=== PATIENT | female | born 1950 | race Caucasian/White ===

== ENCOUNTER → 2016-10-03 | Outpatient (CLI) | payer MEDICARE, OTHER | END | disposition home or self-care (01) | LOC: GMAB 11:14 | PROVIDERS: ATTEND Family Medicine | DX: I10 Essential (primary) hypertension (principal) ==

== ENCOUNTER → 2016-10-09 | Outpatient (CLI) | payer MEDICARE, OTHER ==
--- NOTE | 2016-10-09 13:40 | MAM ---
EXAM DESCRIPTION: MAMMO BREAST SCREENING BILATERAL CLINICAL HISTORY: 65 y/o F, Screening mammogram COMPARISON: 06 September 2015 TECHNIQUE: CC and MLO digital mammograms with computer aided detection. FINDINGS: There are scattered fibroglandular densities. There is no dominant mass nor any suspicious microcalcifications. Benign microcalcifications are present. IMPRESSION: BI-RADS 2: BENIGN FOLLOW-UP: Routine mammography screening. Electronically signed by: Tank Dunlap MD 10/09/2016 13:38
== END | disposition home or self-care (01) ==
LOC: MAMMO 09:34
PROVIDERS: ATTEND Family Medicine
DX: Z12.31 Encounter for screening mammogram for malignant neoplasm of breast (principal)

== ENCOUNTER → 2017-11-26 | Outpatient (CLI) | payer MEDICARE, OTHER | END | disposition home or self-care (01) | LOC: GMAB 11:24 | PROVIDERS: ATTEND Family Medicine | DX: I10 Essential (primary) hypertension (principal) ==

== ENCOUNTER → 2017-12-24 | Outpatient (CLI) | payer MEDICARE, OTHER ==
--- NOTE | 2017-12-26 09:11 | MAM ---
EXAM DESCRIPTION: 3D Screening BILATERAL : Digital Mammography. CLINICAL HISTORY: 67 years Female SCREENING . No complaints. No family history of breast cancer. Hysterectomy. Has taken HRT more than 5 years ago. COMPARISON: 2-D digital screening bilateral study 10/09/2016.. Report from prior examination also reviewed. TECHNIQUE: Bilateral CC and MLO projection full-field images, 3-D tomosynthesis digital mammographic technique. Also bilateral synthesized CC/ MLO full-field images. CAD not utilized. FINDINGS: The breast parenchymal density pattern is: Scattered areas of fibroglandular density. No skin thickening or nipple retraction bilateral solitary microcalcifications. No focal, stellate mass or density, focal asymmetry , and no suspicious microcalcifications bilaterally. Stable mammograms compared to prior study, taking into account differences in mammographic technique IMPRESSION: BI-RADS CATEGORY: 2 - BENIGN FINDINGS. FOLLOW UP: Routine digital bilateral screening, one year interval from December 2017. Written communication explaining the IMPRESSION and follow-up, will be mailed to the patient and referring health care provider. According to the [employer], yearly mammograms are recommended starting at age 40 and continuing as long as a woman is in good health. Any breast change noted on a breast self-exam should be reported promptly to the patient's healthcare provider. Breast MRI is recommended for women with an approximately 20-25% or greater lifetime risk of breast cancer, including women with a strong family history of breast or ovarian cancer and women who have been treated for Hodgkin's disease. A negative mammographic report should not delay tissue diagnosis in patients with significant clinical history or physical findings. Extremely dense breast tissue limits the sensitivity of digital mammography. Electronically signed by: Brody Stone MD 12/26/2017 9:09 AM CDT
== END ==
LOC: MAMMO 13:30
PROVIDERS: ATTEND Family Medicine
DX: Z12.31 Encounter for screening mammogram for malignant neoplasm of breast (principal)

== ENCOUNTER → 2018-12-04 | Outpatient (CLI) | payer MEDICARE, OTHER | LOC: GMAE 10:46 | PROVIDERS: ATTEND Family Medicine | DX: I10 Essential (primary) hypertension (principal); E87.6 Hypokalemia ==

== ENCOUNTER → 2018-12-11 | Outpatient (CLI) | payer MEDICARE, OTHER | LOC: GMAE 15:25 | PROVIDERS: ATTEND Family Medicine | DX: I11.9 Hypertensive heart disease without heart failure (principal) ==

== ENCOUNTER → 2019-03-10 | Outpatient (CLI) | payer MEDICARE, OTHER ==
--- NOTE | 2019-03-11 20:20 | MAM ---
EXAM DESCRIPTION: 3D Screening BILATERAL : Digital Mammography. CLINICAL HISTORY: 68 years Female ANNUAL SCREENING . No complaints. No personal or family history of breast cancer. Childbirth. Postmenopausal. HRT 5 or more years ago. Lifetime risk of developing breast cancer (Tyrer-Cuzick model)(%): 3.8. COMPARISON: Bilateral screening digital breast tomosynthesis 12/24/2017.. TECHNIQUE: Bilateral CC and MLO projection full-field images, digital tomosynthesis mammographic technique. Bilateral digital 2-D full-field MLO images. CAD not available for tomosynthesis or 2-D images. FINDINGS: The breast parenchymal density pattern is: Scattered areas of fibroglandular density. No skin thickening or nipple retraction. No new focal, stellate mass or density, focal asymmetry , and no suspicious microcalcifications bilaterally. Taking into account, differences in mammographic technique. IMPRESSION: BI-RADS CATEGORY: 1 - NEGATIVE FOLLOW UP: Routine digital bilateral screening, one year interval from February 2019. Written communication explaining the findings and follow-up, will be mailed to the patient and referring health care provider. According to the [employer], yearly mammograms are recommended starting at age 40 and continuing as long as a woman is in good health. Any breast change noted on a breast self-exam should be reported promptly to the patient's healthcare provider. Breast MRI is recommended for women with an approximately 20-25% or greater lifetime risk of breast cancer, including women with a strong family history of breast or ovarian cancer and women who have been treated for Hodgkin's disease. A negative mammographic report should not delay tissue diagnosis in patients with significant clinical history or physical findings. Extremely dense breast tissue limits the sensitivity of digital mammography. Electronically signed by: Brody Stone MD 03/11/2019 8:18 PM CDT
== END ==
LOC: MAMMO 09:30
PROVIDERS: ATTEND Family Medicine
DX: Z12.31 Encounter for screening mammogram for malignant neoplasm of breast (principal)

== ENCOUNTER 2019-08-01 11:28 | Emergency (ER) | payer MEDICARE, OTHER ==
--- NOTE | 2019-08-01 11:44 | ED.PDOC ---
History of Present Illness - General Time Seen by Provider: 08/01/19 11:43 Source: patient - History of Present Illness Initial Comments: 68 yo female who presents with cc of left wrist pain following ground level fall at home just [employer]. Reports she tripped on a rock and fell onto outstretched left hand and reports injury, pain, and swelling to dorsal left wrist. Pain is constant, throbbing, moderate severity, radiates to proximal forearm and into do rsal hand, worse with movement and palpation, took ibuprofen 600 mg just [place] [employer] with moderate relief. Denies any weakness or numbness. She is right handed. Allergies/Adverse Reactions: Allergies Penicillins Allergy (Verified 08/01/19 13:51) Home Medications: Ambulatory Orders RX: Ibuprofen 200 mg PO PRN 09/01/13 RX: Multiple Vitamins W/ Minerals [Multi Complete] 1 each PO DAILY 09/01/13 RX: Acetaminophen [Tylenol] 325 mg PO PRN 04/27/16 RX: Aspirin [Aspirin Adult Low Dose] 81 mg PO DAILY 04/27/16 RX: Dexlansoprazole [Dexilant] 60 mg PO DAILY 04/27/16 RX: Nhftmsgbqrw-Igvzitmposv-LOK- [Flexi Joint] 1 tab PO DAILY 04/27/16 RX: Metoprolol Succinate [Toprol Xl] 25 mg PO BEDTIME 04/27/16 RX: Potassium Chloride [K-Tab] 10 meq PO DAILY 04/27/16 RX: Hydrochlorothiazide 25 mg PO DAILY 05/01/16 RX: Lisinopril 20 mg PO DAILY 05/01/16 RX: HYDROcodone 5MG/APAP 325MG [Dyess 5/325] 1 ea PO Q4H PRN #90 tab 05/04/16 RX: Naproxen Sodium [Aleve] 220 mg PO BID PRN #30 05/04/16 Rivaroxaban [Xarelto] 10 mg PO QD #9 tab 05/04/16 Review of Systems - Review of Systems Review of Systems: 08/01/19 12:18 as per HPI All other Systems: Reviewed and Negative Past Medical History (General) - Patient Medical History Hx Stroke: No Hx of COPD: No Hx Congestive Heart Failure: No Hx Hypertension: Yes Hx Diabetes: No Hx MRSA: No Family Medical History - Family History Mother Family History: Unknown Physical Exam - Physical Exam General Appearance: Alert, No apparent distress Eyes, Ears, Nose, Throat Exam: PERRL/EOMI, normal ENT inspection Neck: non-tender, full range of motion, supple, normal inspection Cardiovascular/Respiratory: regular rate, rhythm, no M/R/G, normal peripheral pulses, normal breath sounds, no respiratory distress Abdominal Exam: non-tender Back Exam: normal inspection, no CVA tenderness Shoulder Exam: normal inspection, no evidence of injury Elbow/Forearm Exam: normal inspection, non-tender, normal ROM Wrist Exam: asymmetry, limited ROM, swelling - Left dorsal wrist with moderate swelling and TTP with possible deformity. ROM of left wrist moderately limited all directions due to pain. Strength and sensation testing normal throughout, good cap refill throughout, radial & ulnar pulses 2+ and equal Hand Exam: normal inspection, non-tender Neuro/Tendon: normal sensation, normal motor functions, normal tendon functions Mental Status: alert, oriented x 3 Skin Exam: normal color, warm/dry Progress - Progress Progress: 08/01/19 12:20 Left wrist pain -suspect frx most likely. Consider also contusion vs strain/sprain -obtain XR Left wrist 08/02/19 13:00 -XR Left wrist reveals nondisplaced extraarticular dorsal distal radius fracture of the LUE -discussed with pt and placed in sugar tong splint to LUE, refer to ortho outpatient for 5-7 day f/u for repeat films and casting -dc home in good condition Zeyad Danielle MD Billing #[id number] Procedures - Splinting Left Arm Pre-Made Type: Ortho-glass Hand-Made Type: orthoglass Splint: sugar-tong Pre-Proc Neuro Vasc Exam: normal Post-Proc Neuro Vasc Exam: normal Departure - Departure Clinical Impression: Distal radius fracture, left Time of Disposition: 13:42 Disposition: Discharge to Home or Self Care Condition: Good Departure Forms: ED Discharge - Pt. Copy, Patient Portal Self Enrollment Instructions: Wrist Fracture (DC) Diet: resume usual diet Referrals: GAGE DOYLE MD [Primary Care Provider] - 1-2 Weeks Yosvany Edwards MD [Active Staff] - 1-5 Days Home Medications: Ambulatory Orders RX: Ibuprofen 200 mg PO PRN 09/01/13 RX: Multiple Vitamins W/ Minerals [Multi Complete] 1 each PO DAILY 09/01/13 RX: Acetaminophen [Tylenol] 325 mg PO PRN 04/27/16 RX: Aspirin [Aspirin Adult Low Dose] 81 mg PO DAILY 04/27/16 RX: Dexlansoprazole [Dexilant] 60 mg PO DAILY 04/27/16 RX: Vgolcenhpzb-Fwzvnrxsnuy-ICD- [Flexi Joint] 1 tab PO DAILY 04/27/16 RX: Metoprolol Succinate [Toprol Xl] 25 mg PO BEDTIME 04/27/16 RX: Potassium Chloride [K-Tab] 10 meq PO DAILY 04/27/16 RX: Hydrochlorothiazide 25 mg PO DAILY 05/01/16 RX: Lisinopril 20 mg PO DAILY 05/01/16 RX: HYDROcodone 5MG/APAP 325MG [Dyess 5/325] 1 ea PO Q4H PRN #90 tab 05/04/16 RX: Naproxen Sodium [Aleve] 220 mg PO BID PRN #30 05/04/16 Rivaroxaban [Xarelto] 10 mg PO QD #9 tab 05/04/16 Additional Instructions: Follow up with orthopedic surgery clinic in 5-7 days. Bring CD of x-ray images to your appointment. Continue Tylenol & ibuprofen as needed for pain.
--- NOTE | 2019-08-01 12:52 | RAD ---
EXAM DESCRIPTION: Wrist, Left 3 Views : CLINICAL HISTORY: fall, left wrist pain . COMPARISON: None . TECHNIQUE: Three view x-ray examination of left wrist is submitted. FINDINGS: Fracture of the distal radius is noted without displacement. Cortical disruption is noted along the dorsal cortex. There is presence of soft tissue swelling. The bones are normally mineralized . Degenerative changes are seen in the CMC joint of the left thumb IMPRESSION: Undisplaced fracture of the left distal radius. Electronically signed by: Evelin Abel MD 08/01/2019 12:51 PM [facility]
[2019-08-01 19:23] VITALS: TEMP 97; O2SAT 99
[2019-08-01 19:30] VITALS: BP 205/76
== END 2019-08-01 13:45 | disposition home or self-care (01) ==
LOC: ER 11:28
DX: S52.502A Unspecified fracture of the lower end of left radius, initial encounter for closed fracture (principal); I10 Essential (primary) hypertension; Z79.899 Other long term (current) drug therapy; Z79.82 Long term (current) use of aspirin; Z79.01 Long term (current) use of anticoagulants; Z88.0 Allergy status to penicillin; W01.0XXA Fall on same level from slipping, tripping and stumbling without subsequent striking against object, initial encounter; Y92.009 Unspecified place in unspecified non-institutional (private) residence as the place of occurrence of the external cause

== ENCOUNTER → 2019-08-06 | Outpatient (CLI) | payer MEDICARE, OTHER ==
--- NOTE | 2019-08-06 09:48 | RAD ---
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 No hardware failure or loosening is seen. Mild increased density in the suprapatellar bursa region is seen suggesting small joint effusion. Soft tissues are otherwise unremarkable. Osseous structures are mildly osteopenic. Mild narrowing of the lateral patellofemoral compartment and lateral patellar joint line osteophytes are seen. Electronically signed by: Partha Estrada MD 08/06/2019 9:47 AM [facility]
--- NOTE | 2019-08-06 09:49 | RAD ---
EXAM DESCRIPTION: Wrist,Left 3 Views CLINICAL HISTORY: PAIN IN LEFT WRIST COMPARISON: 01 August 2019 TECHNIQUE: 3 views left FINDINGS: Mild degenerative changes are observed in the metacarpal carpal articulation of the first digit. Some soft tissue swelling is observed. A minimally impacted fracture of the distal radial metaphysis is noted. Exam is obtained through splinting material. IMPRESSION: A minimally impacted fracture of the distal radial metaphysis is observed. Alignment is essentially unchanged from the prior exam. Electronically signed by: Grant Abebe MD 08/06/2019 9:47 AM [facility]
== END ==
LOC: RAD 08:36
PROVIDERS: ATTEND Orthopaedic Surgery
DX: M25.861 Other specified joint disorders, right knee (principal); M25.761 Osteophyte, right knee; M85.861 Other specified disorders of bone density and structure, right lower leg; Z96.651 Presence of right artificial knee joint; S52.502D Unspecified fracture of the lower end of left radius, subsequent encounter for closed fracture with routine healing

== ENCOUNTER → 2019-08-17 | Outpatient (CLI) | payer MEDICARE, OTHER ==
--- NOTE | 2019-08-17 11:30 | RAD ---
EXAM DESCRIPTION: Wrist,Left 3 Views CLINICAL HISTORY: 68 years, Female, CLOSED FRACTURE OF LEFT WRIST COMPARISON: August 06, 2019 TECHNIQUE: Three views left wrist FINDINGS: Very subtle incompletely healed fracture of the distal radius in the region of the distal metaphysis shows incomplete bony union with very subtle fracture line remaining and most evident on the oblique view. Advanced degenerative changes at the base of the thumb and index finger also noted. Overall alignment is essentially anatomic. Mature callus formation is not yet apparent. No definite injury of the distal ulna noted. IMPRESSION: 1. Essentially stable distal radial fracture in near-anatomic alignment with incomplete bony union. Electronically signed by: Caden Quiroga MD 08/17/2019 11:29 AM [facility]
== END ==
LOC: RAD 09:58
PROVIDERS: ATTEND Orthopaedic Surgery
DX: S52.502D Unspecified fracture of the lower end of left radius, subsequent encounter for closed fracture with routine healing (principal)

== ENCOUNTER → 2019-09-17 | Outpatient (CLI) | payer MEDICARE, OTHER ==
--- NOTE | 2019-09-17 13:50 | RAD ---
EXAM DESCRIPTION: Wrist,Left 3 Views CLINICAL HISTORY: FX COMPARISON: August 17, 2019 IMPRESSION: 3 views of the left wrist again demonstrate a nondisplaced transversely oriented fracture involving the distal radius. Fracture lines appear less distinct than previous exam compatible with continued healing of the fracture. No displacement of fracture fragments or articular surface irregularity. Osseous structures are diffusely osteopenic. Moderate osteoarthritic changes of the left first carpometacarpal joint and STT joints is seen. Electronically signed by: Partha Estrada MD 09/17/2019 1:48 PM [facility]
== END ==
LOC: RAD 07:35
PROVIDERS: ATTEND Orthopaedic Surgery
DX: S52.502D Unspecified fracture of the lower end of left radius, subsequent encounter for closed fracture with routine healing (principal); M85.832 Other specified disorders of bone density and structure, left forearm; M18.52 Other unilateral secondary osteoarthritis of first carpometacarpal joint, left hand

== ENCOUNTER → 2020-01-13 | Outpatient (CLI) | payer MEDICARE, OTHER | LOC: GMAE 11:13 | PROVIDERS: ATTEND Family Medicine | DX: I10 Essential (primary) hypertension (principal) ==

== ENCOUNTER → 2020-09-05 | Outpatient (CLI) | payer MEDICARE, OTHER | LOC: GMA CAST 16:11 | PROVIDERS: ATTEND Family Medicine Sports Medicine | DX: N39.0 Urinary tract infection, site not specified (principal); M54.5 Low back pain ==